=== PATIENT | female | born 1995 | race Caucasian/White ===

== ENCOUNTER 2017-11-25 17:03 | Emergency (ER) | payer BC ==
[2017-11-25] MEDS ORDERED: Acetaminophen TAB* 325 MG PO ONE (17:50)
--- NOTE | 2017-11-25 18:08 | UC ---
Minor Trauma HPI - HPI Summary HPI Summary: PATIENT FELL SIDEWAYS OFF A HORSE TODAY APPROXIMATELY 2 HOURS [employer]. LANDED ON HER LEFT HIP AND THEN FELL BACKWARDS AND HER HEAD LIGHTLY STRUCK THE GROUND. DENIES ANY LOC. IS COMPLAINING OF HEADACHE AND HER VISION SEEMS FOGGY. HAD DIZZINESS AND NAUSEA WHICH HAVE NOW RESOLVED. IS ALSO COMPLAINING OF NECK PAIN , LEFT SHOULDER PAIN, LEFT RIB CAGE PAIN, LEFT HIP PAIN AND LOW BACK PAIN. STATES SHE CANNOT BEAR WEIGHT AT ALL. RIB CAGE PAIN IS NOT WORSE WITH DEEP BREATHS. FALL WAS FROM APPROX 5 FEET OFF THE GROUND. DENIES ANY NUMBNESS OR TINGLING. - History of Current Complaint Chief Complaint: UCHeadInjury Stated Complaint: HEAD,RIBS,HIP INJURIES FROM FALL Time Seen by Provider: 11/25/17 17:50 Hx Obtained From: Patient Hx Last Menstrual Period: 10/27/17 Onset/Duration: Sudden Onset, Lasting Hours, Still Present Onset Of Pain: Immediate Severity Initially: Moderate Severity Currently: Moderate Pain Intensity: 7 Pain Scale Used: 0-10 Numeric Mechanism Of Injury: Other - FELL 5 FEET OFF A HORSE Aggravating Factor(s): Ambulation, Weight Bearing Alleviating Factor(s): Nothing Associated Signs And Symptoms: Negative: Loss Of Consciousness - Allergies/Home Medications Allergies/Adverse Reactions: Allergies Allergy/AdvReac Type Severity Reaction Status Date / Time latex Allergy Severe Shortness Verified 11/25/17 17:38 of Breath amoxicillin Allergy Hives Verified 11/25/17 19:42 Home Medications: Home Medications Norethindrone/Eth Est .07/22NF [Junel (NF)] 1 tab PO DAILY 11/25/17 [ History Confirmed 11/25/17] Propranolol TAB* [Inderal TAB*] 1 tab PO PRN 11/25/17 [History] Rizatriptan Benzoate [Rizatriptan] 5 mg PO DAILY 11/25/17 [History Confirmed 05/10] PMH/Surg Hx/FS Hx/Imm Hx Previously Healthy: Yes - Surgical History Surgical History: None - Family History Known Family History: Positive: Hypertension - Social History Alcohol Use: Occasionally Substance Use Type: None Smoking Status (MU): Never Smoked Tobacco Review of Systems Constitutional: Negative Skin: Negative Respiratory: Negative Cardiovascular: Negative Gastrointestinal: Nausea Musculoskeletal: Arthralgia, Decreased ROM, Myalgia Neurological: Headache All Other Systems Reviewed And Are Negative: Yes Physical Exam Triage Information Reviewed: Yes Appearance: Well-Nourished, Pain Distress - MODERATE-SEVERE Vital Signs: Initial Vital Signs Temp 98.7 F 11/25/17 17:29 Pulse 94 11/25/17 17:29 Resp 16 11/25/17 17:29 BP 135/88 11/25/17 17:29 Pulse Ox 100 11/25/17 17:29 Vital Signs Reviewed: Yes Eyes: Positive: Conjunctiva Clear ENT: Positive: Hearing grossly normal Neck: Positive: Other: - NOT TENDER OVER SPINOUS PROCESSES Respiratory: Positive: No respiratory distress, No accessory muscle use Cardiovascular: Positive: Pulses Normal Abdomen Description: Positive: Soft Musculoskeletal: Positive: Other: - EXQUISITELY TENDER LEFT POSTERIOR SHOULDER BUT HAS FULL ROM. EXQUISITELY TENDER LEFT HIP/MIDLINE LOW BACK/COCCYX. EXAM INCOMPLETE DUE TO PT DISCOMFORT Neurological: Positive: Alert Psychological: Positive: Age Appropriate Behavior Diagnostics - Radiology CT CERVICAL SPINE Xray Interpretation: No Acute Changes Radiology Interpretation Completed By: Radiologist LEFT SHOULDER XRAY Xray Interpretation: No Acute Changes Radiology Interpretation Completed By: ED Physician LEFT HIP XRAY Xray Interpretation: No Acute Changes Radiology Interpretation Completed By: ED Physician L-SPINE/SACRAL/COCCYGEAL XRAYS Xray Interpretation: No Acute Changes - BUT INCOMPLETE Radiology Interpretation Completed By: ED Physician Minor Trauma Course/Dx - Course Course Of Treatment: CT C-SPINE NEGATIVE PER [facility]. SHOULDER XRAY NEGATIVE ON MY REVIEW. UNABLE TO PROPERLY ASSESS LUMBAR/SACRAL/COCCYGEAL INJURY DUE TO INABILITY TO OBTAIN ADEQUATE IMAGING. PT IN EXTREME PAIN WITH ANY ATTEMPT AT POSITIONING OR WEIGHT BEARING. TO [facility] ED BY AMBULANCE. 2MG MORPHINE ADMINISTERED. - Differential Dx/Diagnosis Provider Diagnoses: 1. CONCUSSION. 2. LEFT HIP/PELVIC PAIN S/P TRAUMA - Physician Notifications Discussed Patient Care With: Arden Faust - TO [facility] ED BY AMBULANCE Time Discussed With Above Provider: 19:45 Instructed by Provider To: MD Will See In ED Discharge - Sign-Out/Discharge Documenting (check all that apply): Patient Departure All imaging exams completed and their final reports reviewed: No - Discharge Plan Condition: Stable Disposition: TRANS HIGHER LVL OF CARE FAC Referrals: [facility] [Primary Care Provider] - - Billing Disposition and Condition Condition: STABLE Disposition: Trans Higher Lvl of Care Fac
--- NOTE | 2017-11-25 19:13 | RAD ---
EXAM: CT Cervical Spine Without Intravenous Contrast CLINICAL HISTORY: 22 years old, female; Injury or trauma; Fall; Initial encounter; Concussion /head injury; Injury date: 11/25/17; Additional info: Fall off horse, posterior neck pain , ? spinous process FX on xray, pt in collar TECHNIQUE: Axial computed tomography images of the cervical spine without intravenous contrast. All CT scans at this facility use at least one of these dose optimization techniques: automated exposure control; mA and/or kV adjustment per patient size (includes targeted exams where dose is matched to clinical indication); or iterative reconstruction. Coronal and sagittal reformatted images were created and reviewed. COMPARISON: No relevant prior studies available. FINDINGS: Vertebrae: Vertebral body heights are maintained. No locked or perched facets. No acute fracture. The dens is intact. Atlantoaxial intervals are normal. Cervical lordosis alignment is normal. Discs/spinal canal/neural foramina: Disc space heights are normal. No spinal canal stenosis. Soft tissues: Unremarkable. Lung apices: Unremarkable as visualized. IMPRESSION: No acute cervical spine fracture. To contact [facility] with a general question: Operations Center - [phone] For direct physician to physician contact: Physician Hotline - [phone] [facility] [place] ([facility] Facility ID #[id number])
[2017-11-25] MEDS ORDERED: Morphine VIAL* 10 MG/ML 1 ML VIAL IV ONE (19:33)
[2017-11-25] MEDS ORDERED: Ondansetron INJ* 2 MG/ML VIAL IV ONE (19:34)
[2017-11-25 19:47] VITALS: BP 135/72
[2017-11-25] MEDS ORDERED: NS 0.9% 1000 ML* 1,000 ML IV ONE (19:52)
--- NOTE | 2017-11-26 05:26 | RAD ---
INDICATION: C7 level neck pain post fall from horse. Comparison: No prior cervical spine imaging. Technique: Lateral view cervical spine obtained with the patient in a cervical collar. Report: Normal articular alignment from the craniocervical junction through the cervicothoracic junction. Preserved cervical vertebral body heights without evidence for fracture. Normal developmental variation at the tips of the C5 and C6 spinous processes. No posterior element fracture evident. Preserved disc spaces. Unremarkable prevertebral soft tissue contours. IMPRESSION: #. Single lateral view of the cervical spine without evidence for fracture or facet subluxation. R2
--- NOTE | 2017-11-26 05:33 | RAD ---
Indication: LEFT shoulder pain post fall from horse. Comparison: No relevant prior exams available on the [facility] PACS for comparison. Technique: Internal rotation AP, external rotation Grashey, scapular Y views LEFT shoulder Report: Negative for fracture. Normal acromioclavicular and glenohumeral joint alignment. Unremarkable soft tissue contours. IMPRESSION: #. Negative 3 view radiographic exam of the LEFT shoulder. R0
--- NOTE | 2017-11-26 05:35 | RAD ---
Indication: LEFT hip pain post fall from horse. Comparison: No relevant prior exams available on the [facility] PACS for comparison. Technique: Supine AP pelvis and AP and frog-leg lateral views LEFT hip. Report: Normally located LEFT hip. Negative for LEFT proximal femur or pelvic fracture or pelvic joint diastases. Preserved LEFT hip joint space symmetric with the RIGHT. Subchondral sclerosis at the iliac margin of the LEFT sacroiliac joint may be secondary to presence of chronic sacroiliitis or represent indolent osteitis condensans ilii. Unremarkable soft tissue contours. IMPRESSION: #. No radiographic evidence for LEFT hip fracture. R0
--- NOTE | 2017-11-26 05:38 | RAD ---
Indication: Back pain post fall from horse. Comparison: No relevant prior exams available on the [facility] PACS for comparison. Technique: Single AP lumbar sacral spine view. Report: Slight LEFT convex curve of the lumbar spine. The lumbar vertebral bodies are normal in height without evidence for compression fracture within limits of single AP view. No transverse process fractures evident. Grossly preserved disc spaces. Unremarkable paraspinal soft tissue contours. IMPRESSION: #. Negative limited single AP view of the lumbar spine. Correlate with clinical assessment and proceed with complete radiographic series or CT if deemed appropriate. R0
--- NOTE | 2017-11-26 05:40 | RAD ---
Indication: LEFT buttock, hip, tailbone pain post fall. Unable to bear weight. Comparison: Subsequent CT exam of the same date. Technique: AP views sacrum and coccyx. No lateral view obtained. Report: Bowel contents partially obscures the sacrum and coccyx. The sacral ala appear grossly intact in the AP projection. No fracture plane identified. Normal sacroiliac joint alignment. Unremarkable soft tissue contours. IMPRESSION: #. Negative limited exam of the sacrum and coccyx. The patient subsequently underwent CT without findings of fracture. R0
--- NOTE | 2017-11-26 09:05 | UC ---
- Progress Note Progress Note: c spine xray c spine CT shoulder hip l spine sacrum/coccyx images reviewed - no acute fx no change Ljj Course/Dx - Provider Notifications Time Discussed With Above Provider: 19:45 Instructed by Provider To: MD Will See In ED Discharge - Sign-Out/Discharge Documenting (check all that apply): Post-Discharge Follow Up All imaging exams completed and their final reports reviewed: Yes - Discharge Plan Condition: Stable Disposition: TRANS HIGHER LVL OF CARE FAC Referrals: [facility] [Primary Care Provider] - - Billing Disposition and Condition Condition: STABLE Disposition: Trans Higher Lvl of Care Fac
== END 2017-11-25 20:10 | disposition short-term general hospital (02) ==
LOC: UCEAST 17:03 → EDBD 17:03 → UCEAST 20:10
DX: S06.0X9A Concussion with loss of consciousness of unspecified duration, initial encounter (principal); M25.552 Pain in left hip; Z88.0 Allergy status to penicillin; Z91.040 Latex allergy status; V80.010A Animal-rider injured by fall from or being thrown from horse in noncollision accident, initial encounter; Y92.9 Unspecified place or not applicable
CPT/HCPCS: 72020; 72100; 72125; 72220; 96360; 96374; 96376; 99203; A9270-GY; G0463; J2270; J2405

== ENCOUNTER 2017-11-25 20:25 | Emergency (ER) | payer BC ==
[2017-11-25] MEDS ORDERED: oxyCODONE/Acetamin 5/325 MG* TAB PO ONE (20:41)
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
[2017-11-25 21:21] LABS: ABS Basophils 0 10^3/ul (0-0.2); ABS Eosinophils 0.1 10^3/ul (0-0.6); ABS Lymphocytes 1.8 10^3/ul (1.0-4.8); ABS Monocytes 0.8 10^3/ul (0-0.8); ABS Neutrophils 8.3 10^3/ul (1.5-7.7); ABS Nucleated RBC 0 10^3/ul; Eosinophil % 0.5 % (0-6); Hematocrit 36 % (35-47); Lymphocyte % 16.1 % (25-47); Mean Corpuscular HGB Conc 33 g/dl (31-36); Mean Corpuscular Hemoglobin 29 pg (27-31); Mean Corpuscular Volume 89 fL (80-97); Mean Platelet Volume 7.5 um3 (7.4-10.4); Nucleated Red Blood Cells % 0.1; Platelet Count 372 10^3/ul (150-450); Red Blood Count 4.09 10^6/ul (4.00-5.40); Red Cell Distribution Width 14 % (10.5-15)
[2017-11-25 21:27] LABS: EGFR Non-African American 112.2 (>60)
--- NOTE | 2017-11-25 22:13 | ED ---
Progress - Progress Note Progress Note: Pt was signed out by Dr. El to Dr. Bernabe, pending imaging reports. - EKG/XRAY/CT CT: Pelvis: No traumatic pelvic abnormalities. Lumbar spine: Negative Re-Evaluation - Re-Evaluation First Eval Re-Evaluation Time: 00:10 Comment: Patient wants to go home instead of going to the trauma center Course/Dx - Course Course Of Treatment: Pelvis and Lumbar Spine CT's were both negative. In the ED course she was given Oxycodone and IV fluids. Patient had difficulty ambulating in the ED using crutches. I had a discussion with the patient and her parents over the phone about transferring her to a trauma center, because we cannot admit her here for trauma help. After a long discussion, the patient decided that she wants to go home. The patient will be given crutches and pain medication. The patient should see Dr. Manzo tomorrow. The patient is agreeable with this plan. - Diagnoses Provider Diagnoses: Pain in joint involving left pelvic region and thigh, Increased weakness when ambulating Discharge - Sign-Out/Discharge Documenting (check all that apply): Patient Departure - discharge, Receiving Sign-Out Receiving patient FROM: Dawit El - Discharge Plan Condition: Stable Disposition: HOME Prescriptions: oxyCODONE/Acetamin 5/325 MG* [Percocet 5/325 TAB*] 1 tab PO Q6H PRN #14 tab MDD 4 PRN Reason: Pain Patient Education Materials: Pelvic Pain in Women (ED) Referrals: Dk Manzo MD [Medical Doctor] - Additional Instructions: RETURN TO THE EMERGENCY DEPARTMENT FOR CHANGING OR WORSENING SYMPTOMS. FOLLOW UP WITH ORTHO IN 1 DAY. - Attestation Statements Document Initiated by Scribe: Yes Documenting Scribe: Luis Guzmán Provider For Whom Joo is Documenting (Include Credential): Bushra Bernabe MD Scribe Attestation: Luis Rodriguez, scribed for Bushra Bernabe MD on 11/26/17 at 0041.
--- NOTE | 2017-11-25 22:31 | RAD ---
EXAM: CT Lumbar Spine Without Intravenous Contrast CLINICAL HISTORY: 22 years old, female; Injury or trauma; Fall; Initial encounter; Blunt trauma (contusions or hematomas); Additional info: Pain after trauma TECHNIQUE: Axial computed tomography images of the lumbar spine without intravenous contrast. All CT scans at this facility use at least one of these dose optimization techniques: automated exposure control; mA and/or kV adjustment per patient size (includes targeted exams where dose is matched to clinical indication); or iterative reconstruction. Coronal and sagittal reformatted images were created and reviewed. COMPARISON: OT LSP PART SP LUMBAR AP/LAT 2-3 VIEWS 11/25/2017 6:28 PM FINDINGS: Vertebrae: Normal lumbar lordosis without spondylolisthesis. Vertebral body heights are maintained. No fractures. Discs/spinal canal/neural foramina: L1-L2:There is no disc space narrowing. No canal stenosis or foraminal narrowing. The facet joints are normal. L2-L3:There is no disc space narrowing. No canal stenosis or foraminal narrowing. The facet joints are normal. L3-L4:There is no disc space narrowing. No canal stenosis or foraminal narrowing. The facet joints are normal. L4-L5:There is no disc space narrowing. No canal stenosis or foraminal narrowing. The facet joints are normal. L5-S1:There is no disc space narrowing. No canal stenosis or foraminal narrowing. The facet joints are normal. Soft tissues: Normal. No hernias. IMPRESSION: No lumbar spine traumatic abnormalities. To contact [facility] with a general question: [facility] - [phone] For direct physician to physician contact: Physician Hotline - [phone] [facility] ([facility] Facility ID #[id number])
--- NOTE | 2017-11-25 22:34 | RAD ---
EXAM: CT Pelvis Without Intravenous Contrast CLINICAL HISTORY: 22 years old, female; Injury or trauma; Fall; Initial encounter; Blunt trauma (contusions or hematomas); Does not apply; Hip; Additional info: Pain after trauma TECHNIQUE: Axial computed tomography images of the pelvis without intravenous contrast. All CT scans at this facility use at least one of these dose optimization techniques: automated exposure control; mA and/or kV adjustment per patient size (includes targeted exams where dose is matched to clinical indication); or iterative reconstruction. Coronal and sagittal reformatted images were created and reviewed. COMPARISON: OT HIP LT HIP LEFT 2 VIEWS AND PELVIS 11/25/2017 6:28 PM FINDINGS: Bones/joints: No fractures. No suspicious bone lesions. Soft tissues: Normal. No hernias. Stomach and bowel: Visualized small bowel is normal in caliber. No masses or segmental wall thickening throughout the visualized colon. Appendix: Nonvisualized appendix with no secondary findings to suggest appendicitis. Bladder: Thin-walled bladder with no focal nodularity, perivesicular stranding, or calcifications. No stones. Reproductive: Uterus and ovaries are normal. IMPRESSION: No traumatic pelvic abnormalities. To contact [facility] with a general question: Operations Center - [phone] For direct physician to physician contact: Physician Hotline - [phone] [facility] ([facility] Facility ID #[id number])
[2017-11-25] MEDS ORDERED: Metoclopramide IV* 5 MG/ML 2 ML VIAL IV SLOW PU ONE (22:42)
[2017-11-25] MEDS ORDERED: fentaNYL* 50 MCG/ML 2 ML VIAL (100 MCG VIAL) IV SLOW PU ONE (22:42)
[2017-11-26] MEDS ORDERED: fentaNYL* 50 MCG/ML 2 ML VIAL (100 MCG VIAL) IV SLOW PU ONE (00:21)
[2017-11-26 01:20] VITALS: BP 113/68
== END 2017-11-26 03:32 | disposition home or self-care (01) ==
LOC: ED 20:25
DX: R10.2 Pelvic and perineal pain (principal); M54.5 Low back pain; M54.2 Cervicalgia; R51 Headache; R42 Dizziness and giddiness; M25.552 Pain in left hip; M25.562 Pain in left knee; M25.512 Pain in left shoulder; V80.010A Animal-rider injured by fall from or being thrown from horse in noncollision accident, initial encounter; Y93.52 Activity, horseback riding; Y92.9 Unspecified place or not applicable; Z88.3 Allergy status to other anti-infective agents; Z88.0 Allergy status to penicillin
CPT/HCPCS: 36415; 72131; 72192; 80048; 84702; 85025; 96374; 96375; 99283; A9270-GY; J2765; J3010